=== PATIENT | male | born 1980 | race Caucasian/White ===

== ENCOUNTER 2021-02-15 20:41 | Emergency (ER) | payer OTHER ==
[~2021-02-15] VITALS: Ht 198.1 cm; Wt 103.0 kg
[2021-02-15 21:51] VITALS: BP 133/48
== END 2021-02-15 21:52 | disposition home or self-care (01) ==
LOC: M.ERS 20:41
DX: S90.32XA Contusion of left foot, initial encounter (principal); W50.0XXA Accidental hit or strike by another person, initial encounter; Y93.89 Activity, other specified; Y92.89 Other specified places as the place of occurrence of the external cause; Y99.9 Unspecified external cause status